=== PATIENT | female | born 1950 | race Caucasian/White ===

== ENCOUNTER 2022-04-24 21:55 | Emergency (ER) | payer MEDICARE ==
[~2022-04-24] VITALS: Ht 154.9 cm; Wt 63.4 kg
[2022-04-24 22:49] VITALS: BP 194/90
[2022-04-24 23:01] VITALS: BP 141/84
[2022-04-24 23:16] VITALS: BP 178/78
[2022-04-24 23:30] VITALS: BP 186/85
[2022-04-24 23:46] VITALS: BP 190/75
[2022-04-25] VITALS (11 sets, daily range): BP systolic 101–207; BP diastolic 45–113
[2022-04-25 00:38] LABS: BASO% 0.3 % (0-3); EOS% 2.8 % (0-8); HEMATOCRIT 37.5 % (37.0-47.0); HEMOGLOBIN 12.8 g/dl (12.0-16.0); IMMATURE GRANULOCYTES 0.1 % (0.0-5.0); MEAN CELL VOLUME 100.3 fL CALC (80.0-100.0); MEAN CORPUSCULAR HGB 34.2 pG CALC (26.0-32.0); MEAN CORPUSCULAR HGB CONC 34.1 g/dL CAL (32.0-36.0); NEUT# 4.08 thou/uL (2.00-7.15); NEUT% 53.8 % (42-76); RED BLOOD COUNT 3.74 mill/uL (4.20-5.60); RED CELL DISTRI WIDTH 12.5 % (11.5-15.5)
[2022-04-25 00:48] LABS: ALBUMIN 4.5 g/dL (3.2-5.0); ALKALINE PHOSPHATASE 112 u/l (38-126); ANION GAP 10 (6-22 (CALC)); BILIRUBIN, TOTAL 0.2 mg/dL (0.02-1.3); BUN 16 mg/dL (8-23); BUN/CREATININE RATIO 24 (12-20 (CALC)); CARBON DIOXIDE 27 mmol/l (22-30); CHLORIDE 106 mmol/l (95-108); CREATININE 0.7 mg/dL (0.5-1.0); GFR FOR AFR.AMER. > 60 ML/MIN (>=60 (CALC)); GFR OTHER RACES > 60 ML/MIN (>=60 (CALC)); POTASSIUM 3.6 mmol/l (3.5-5.1); SGOT/AST 49 u/l (9-36); SODIUM 139 mmol/l (137-146); TOTAL PROTEIN 7.5 g/dL (6.3-8.2)
[2022-04-25] MEDS ORDERED: LOSARTAN POTASS25 MG PO (20:10)
[2022-04-25] MEDS ORDERED: CLONIDINE0.2 MG PO (21:05)
== END 2022-04-25 02:09 | disposition home or self-care (01) ==
LOC: ED 21:55
PROVIDERS: Emergency Medicine
DX: I10 Essential (primary) hypertension (principal); I49.3 Ventricular premature depolarization

== ENCOUNTER 2022-04-25 19:37 | Emergency (ER) | payer MEDICARE ==
[~2022-04-25] VITALS: Ht 154.9 cm; Wt 63.0 kg
[2022-04-25 19:59] VITALS: BP 144/122
[2022-04-25 20:03] VITALS: BP 192/87
[2022-04-25] MEDS ORDERED: LOSARTAN POTASS25 MG PO (20:10)
[2022-04-25 20:31] VITALS: BP 157/57
[2022-04-25 20:37] LABS: URINE BILIRUBIN - DIPSTICK NEGATIVE (NEGATIVE); URINE BLOOD DIPSTICK MODERATE (NEGATIVE); URINE COLOR YELLOW; URINE GLUCOSE - DIPSTICK NEGATIVE (NEGATIVE); URINE KETONE NEGATIVE (NEGATIVE); URINE LEUK ESTERASE TRACE (NEGATIVE); URINE PH 5.5 (4.5-8.0); URINE PROTEIN - DIPSTICK NEGATIVE (NEG-TRACE); URINE SPECIFIC GRAVITY <=1.005; URINE UROBILINOGEN - DIPSTICK 0.2 E.U./dL (0.2)
[2022-04-25 20:40] LABS: URINE NITRITE - DIPSTICK NEGATIVE (Negative)
[2022-04-25 20:48] LABS: URINE SQUAMOUS EPITHELIAL CELL RARE EPI/hpf (0-FEW)
[2022-04-25 21:01] VITALS: BP 144/60
[2022-04-25] MEDS ORDERED: CLONIDINE0.2 MG PO (21:05)
[2022-04-25 21:18] VITALS: BP 144/60
== END 2022-04-25 21:28 | disposition home or self-care (01) ==
LOC: ED 19:37
PROVIDERS: Emergency Medicine
DX: I10 Essential (primary) hypertension (principal)